=== PATIENT | female | born 1985 | race American Indian/Alaskan Native ===

== ENCOUNTER 2016-12-16 13:58 | Emergency (ER) | payer SELFPAY ==
[2016-12-16 14:43] VITALS: BP 112/82
[2016-12-16] MEDS ORDERED: MOTRIN PO ONE (17:41)
[2016-12-16] MEDS ORDERED: TRIMOX PO ONE (17:41)
--- NOTE | 2016-12-16 17:46 | Emergency Department Report ---
ED ENT HPI - General Chief complaint: Dental/Oral Stated complaint: RT EAR PAIN/TEETH PAIN Time Seen by Provider: 12/16/16 17:32 Source: patient Mode of arrival: Ambulatory Limitations: No Limitations - History of Present Illness Initial comments: PT c/o toothache that started yesterday. PT states her lower teeth hurt. PT denies recent dental work or trauma. PT states the last time she went to a Dentist, it was 2 years ago. PT states that she was told that she needs multiple teeth removed. PT states she never followed up. Pt also c/o R ear ache. No relief with Tylenol complaint: tooth pain -: Gradual, days(s) Location: tooth # (- ) 1 - pain, severe decay Severity: severe Severity scale (0 -10): 10 Quality: sharp Consistency: constant Improves with: none Worsens with: eating, movement, other (palpation ) Context- Dental: history of dental caries, poor dental care Associated Symptoms: toothache. denies: fever, gum swelling, pain with swallowing, sore throat - Related Data Home Medications Medication Instructions Recorded Confirmed Last Taken No Known Home Medications [No 12/16/16 12/16/16 Unknown Reported Home Medications] Allergies Allergy/AdvReac Type Severity Reaction Status Date / Time No Known Allergies Allergy Verified 12/16/16 14:44 ED Dental HPI - General Chief complaint: Dental/Oral Stated complaint: RT EAR PAIN/TEETH PAIN Time Seen by Provider: 12/16/16 17:32 Source: patient Mode of arrival: Ambulatory Limitations: No Limitations - Related Data Home Medications Medication Instructions Recorded Confirmed Last Taken No Known Home Medications [No 12/16/16 12/16/16 Unknown Reported Home Medications] Allergies Allergy/AdvReac Type Severity Reaction Status Date / Time No Known Allergies Allergy Verified 12/16/16 14:44 ED Review of Systems ROS: Stated complaint: RT EAR PAIN/TEETH PAIN Other details as noted in HPI Comment: All other systems reviewed and negative Constitutional: chills (while being in cold ED ). denies: fever ENT: ear pain, dental pain. denies: throat pain Respiratory: denies: cough Gastrointestinal: denies: nausea, vomiting Skin: denies: change in color ED Past Medical Hx - Past Medical History Previous Medical History?: No - Surgical History Additional Surgical History: - Social History Smoking Status: Current Every Day Smoker Substance Use Type: Alcohol - Medications Home Medications: Home Medications Medication Instructions Recorded Confirmed Last Taken Type No Known Home Medications [No 12/16/16 12/16/16 Unknown History Reported Home Medications] ED Physical Exam - General Limitations: No Limitations General appearance: alert, in no apparent distress - Head Head exam: Present: atraumatic, normocephalic - Eye Eye exam: Present: normal appearance, EOMI. Absent: scleral icterus, conjunctival injection - ENT ENT exam: Present: normal orophraynx, TM's normal bilaterally, normal external ear exam - Expanded ENT Exam Expanded Teeth exam: Present: dental caries, other (wide spread dental decay. Teeth 22- 26 tender. No dental abscess noted ). Absent: gingival enlargement Throat exam: Positive: normal inspection. Negative: tonsillar erythema, tonsillomegaly, tonsillar exudate - Neck Neck exam: Present: normal inspection, full ROM. Absent: tenderness - Respiratory Respiratory exam: Present: normal lung sounds bilaterally. Absent: respiratory distress - Cardiovascular Cardiovascular Exam: Present: regular rate, normal rhythm - GI/Abdominal GI/Abdominal exam: Present: soft. Absent: distended, tenderness - Extremities Exam Extremities exam: Present: normal inspection, full ROM - Back Exam Back exam: Present: normal inspection, full ROM. Absent: tenderness, CVA tenderness (R), CVA tenderness (L) - Neurological Exam Neurological exam: Present: alert, oriented X3 - Psychiatric Psychiatric exam: Present: normal affect, normal mood - Skin Skin exam: Present: warm, dry, intact, normal color ED Course Vital Signs 12/16/16 14:40 Temperature 98.2 F Pulse Rate 73 Respiratory 17 Rate Blood Pressure 112/82 O2 Sat by Pulse 100 Oximetry - Reevaluation(s) Reevaluation #1: 12/16/16 17:47 PT aware of dx and plan of care. PT aware she must follow up with a dentist. - Pulse Oximetry Interpretation Digit-Finger Initial Pulse Oximetry Readin Actions Taken: none ED Medical Decision Making - Differential Diagnosis dental abscess, toothache Critical care attestation.: If time is entered above; I have spent that time in minutes in the direct care of this critically ill patient, excluding procedure time. ED Disposition Clinical Impression: Dental decay, Toothache Disposition: DISCHARGED TO HOME OR SELFCARE Is pt being admited?: No Does the pt Need Aspirin: No Condition: Stable Instructions: Dental Caries (ED), Toothache (ED) Additional Instructions: Follow up with a Dentist No driving or ETOH after taking Ultram You can take OTC Motrin and Tylenol Use a toothpaste for sensitive skin. Referrals: PRIMARY CARE, [Primary Care Provider] - 3-5 Days Time of Disposition: 17:49
== END 2016-12-16 17:58 | disposition home or self-care (01) ==
LOC: ED 13:58
DX: K02.9 Dental caries, unspecified (principal); K08.89 Other specified disorders of teeth and supporting structures
CPT/HCPCS: 99282

== ENCOUNTER 2017-09-20 23:11 | Emergency (ER) | payer SELFPAY | END 2017-09-21 | disposition left against medical advice (07) | LOC: ED 23:11 | DX: H92.02 Otalgia, left ear (principal); Z53.21 Procedure and treatment not carried out due to patient leaving prior to being seen by health care provider ==